=== PATIENT | male | born 2000 | race Caucasian/White ===

== ENCOUNTER 2025-01-30 09:22 | Emergency (ER) | payer OTHER, SELFPAY ==
[2025-01-30 09:25] VITALS: BP 143/85; PULSE 76; RESP 18; TEMP 36.4; O2SAT 99; BMI 270.7
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
--- NOTE | 2025-01-30 09:42 | DI.RAD.S_ITS ---
PROCEDURE: XR CHEST 2V INDICATIONS: ? tb exposure TECHNIQUE: 2 views of the chest were acquired. COMPARISON: None. FINDINGS: Surgical changes and devices: None. Lungs and pleura: Lungs are clear. No pleural effusions or pneumothorax. Mediastinum: Mediastinal contours are normal. Heart size is normal. Bones and chest wall: No suspicious bony abnormalities. Soft tissues appear unremarkable. IMPRESSION: No acute cardiopulmonary abnormality is seen. Dictated by: Jakub Copeland M.D. on 01/30/2025 at 10:41 Approved by: Jakub Copeland M.D. on 01/30/2025 at 10:41
== END 2025-01-30 10:50 | disposition home or self-care (01) ==
PROVIDERS: Emergency Provider Emergency Medicine
DX: Z20.1 Contact with and (suspected) exposure to tuberculosis (principal)
CPT/HCPCS: 71046; 99281; 99283

== ENCOUNTER 2025-03-07 11:40 | Emergency (ER) | payer OTHER, SELFPAY ==
[2025-03-07 12:29] VITALS: BP 128/65; PULSE 80; RESP 18; TEMP 36.4; O2SAT 98; BMI 27.7
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
[2025-03-07] MEDS: AMOXICILLIN/CLAV 875/125 MG 1 TAB PO (13:16)
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
[2025-03-07 14:25] VITALS: BP 132/68; PULSE 78; RESP 20; TEMP 36.9; O2SAT 98
[2025-03-07 14:39] LABS: Alanine Aminotransferase 34 IU/L (<50)
[2025-03-07 15:43] LABS: HIV 1 & 2 Ab/Ag 4th Gen Combo NEGATIVE (NEGATIVE); Hep C Virus Ab w/Reflex Quant NEGATIVE s/c (NEGATIVE)
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
[2025-03-09 06:28] LABS: Hepatitis B Surf Ab Qualitativ Reactive (.)
== END 2025-03-07 14:15 | disposition home or self-care (01) ==
PROVIDERS: Emergency Provider Student in an Organized Health Care Education/Training Program
DX: S51.852A Open bite of left forearm, initial encounter (principal); W50.3XXA Accidental bite by another person, initial encounter; Y93.F9 Activity, other caregiving; Y99.0 Civilian activity done for income or pay
CPT/HCPCS: 36415; 73090; 84460; 86706; 86803; 87389; 99283